=== PATIENT | female | born 1960 | race African-American/Black ===

== ENCOUNTER 2019-04-01 13:16 | Emergency (ER) | payer OTHER ==
[~2019-04-01] VITALS: Ht 157.5 cm; Wt 59.0 kg
[2019-04-01 13:47] LABS: URINE BILIRUBIN NEGATIVE (Negative); URINE BLOOD 1+ (Negative); URINE CLARITY CLEAR; URINE COLOR YELLOW; URINE GLUCOSE-RANDOM* NEGATIVE (Negative); URINE KETONES NEGATIVE (Negative); URINE NITRITE-REFLEX NEGATIVE (Negative); URINE PROTEIN (DIPSTICK) NEGATIVE (Negative); URINE SPECIFIC GRAVITY <= 1.005 (1.005-1.035); URINE UROBILINOGEN 0.2 E.U./dl (0.2-1.0)
[2019-04-01 13:50] LABS: URINE LEUKOCYTES-REFLEX 2+ (Negative)
[2019-04-01 13:58] LABS: BACTERIA-REFLEX 1-9 Few /HPF (None Seen); CASTS None Seen /LPF (None Seen); CRYSTALS None Seen /LPF (None Seen); SQUAMOUS None Seen /LPF (0-3); URINE RBC 0-2 Rare /HPF (0-2); URINE WBC-REFLEX 0-5 Rare /HPF (0-5)
[2019-04-01] MEDS ORDERED: KEFLEX500 M1 PO (15:34)
[2019-04-01] MEDS ORDERED: FLAGYL500 M1 PO (15:34)
[2019-04-01] MEDS ORDERED: AFRIN30 ML PO (15:35)
[2019-04-01 16:00] VITALS: BP 133/70
== END 2019-04-01 16:06 | disposition home or self-care (01) ==
LOC: ER 13:16
PROVIDERS: Physician Assistant
DX: A59.9 Trichomoniasis, unspecified (principal); J06.9 Acute upper respiratory infection, unspecified; N39.0 Urinary tract infection, site not specified; E78.5 Hyperlipidemia, unspecified; Z88.0 Allergy status to penicillin